=== PATIENT | female | born 1975 | race Caucasian/White ===

== ENCOUNTER → 2020-12-18 | Outpatient (CLI) | payer BC | END | disposition home or self-care (01) | LOC: LABWHC1 13:13 | PROVIDERS: ATTEND Nurse Practitioner Family | DX: R19.7 Diarrhea, unspecified (principal) | CPT/HCPCS: 83630; 87328; 87329 ==

== ENCOUNTER → 2021-06-21 | Outpatient (CLI) | payer BC ==
--- NOTE | 2021-06-21 11:17 | XR ---
EXAMINATION TYPE: XR foot limited RT DATE OF EXAM: 06/21/2021 CLINICAL HISTORY: pain TECHNIQUE: Frontal, lateral and oblique images of the right foot are obtained. COMPARISON: None. FINDINGS: There is no acute fracture/dislocation evident. The joint spaces appear within normal garza its. The overlying soft tissue appears unremarkable. IMPRESSION: There is no acute fracture or dislocation. ICD 10 NO FRACTURE, INITIAL EVALUATION
== END | disposition home or self-care (01) ==
LOC: RADXRMAIN 10:06
PROVIDERS: ATTEND Nurse Practitioner Family
DX: M79.671 Pain in right foot (principal)

== ENCOUNTER 2022-09-26 20:14 | Emergency (ER) | payer BC ==
[2022-09-26 20:19] VITALS: TEMP 98
[2022-09-26] MEDS ORDERED: ASPIRIN 81 MG PO STA (20:29)
[2022-09-26] MEDS ORDERED: SODIUM CHLORIDE 0.9% 1,000 ML IV STA (20:29)
[2022-09-26] MEDS ORDERED: MORPHINE SULFATE 4 MG/ML SYRINGE IVP STA (20:58)
[2022-09-26 21:12] LABS: Basophils # (A) 0.1 k/uL (0-0.2); Basophils % (A) 1 %; Eosinophils # (A) 0.1 k/uL (0-0.7); Eosinophils % (A) 1 %; HCT 43.1 % (34.0-46.0); HGB 14.4 gm/dL (11.4-16.0); Lymphocytes # (A) 2.6 k/uL (1.0-4.8); Lymphocytes % (A) 23 %; MCH 26.5 pg (25.0-35.0); MCHC 33.5 g/dL (31.0-37.0); MCV 78.9 fL (80.0-100.0); Mean Platelet Volume 8.4; Monocytes # (A) 0.7 k/uL (0-1.0); Monocytes % (A) 6 %; Neutrophils # (A) 7.5 k/uL (1.3-7.7); Neutrophils % (A) 67 %; Platelet Count 238 k/uL (150-450); RBC 5.46 m/uL (3.80-5.40); RDW 14.5 % (11.5-15.5); WBC 11.1 k/uL (3.8-10.6)
--- NOTE | 2022-09-26 21:17 | XR ---
EXAMINATION TYPE: XR chest 2V DATE OF EXAM: 09/26/2022 9:10 PM COMPARISON: None TECHNIQUE: XR chest 2V Frontal and lateral views of the chest. CLINICAL INDICATION:Female, 47 years old with history of Chest Pain; FINDINGS: Lungs/Pleura: There is no evidence of pleural effusion, focal consolidation, or pneumothorax. Pulmonary vascularity: Unremarkable. Heart/mediastinum: Cardiomediastinal silhouette is unremarkable. Musculoskeletal: No acute osseous pathology. IMPRESSION: No acute cardiopulmonary disease/process.
[2022-09-26 21:23] LABS: ALT 26 U/L (4-34); AST 22 U/L (14-36); African American GFR (CKD) >90 (>60 ml/min/1.73 sqM); Albumin 3.8 g/dL (3.5-5.0); Alkaline Phosphatase 85 U/L (38-126); Amylase 96 U/L (30-110); Anion Gap 9 mmol/L; Blood Urea Nitrogen 10 mg/dL (7-17); Calcium 8.5 mg/dL (8.4-10.2); Carbon Dioxide 21 mmol/L (22-30); Chloride 109 mmol/L (98-107); Glucose 115 mg/dL (74-99); Lipase 183 U/L (23-300); Non-African American GFR(CKD) >90 (>60 ml/min/1.73 sqM); Potassium 3.7 mmol/L (3.5-5.1); Sodium 139 mmol/L (137-145); Total Bilirubin 0.2 mg/dL (0.2-1.3); Total Protein 7.1 g/dL (6.3-8.2)
[2022-09-26 21:33] LABS: Partial Thromboplastin Time 21.2 sec (22.0-30.0); Prothrombin Time 10.3 sec (9.0-12.0)
[2022-09-26] MEDS ORDERED: LORazepam 2 MG/ML INJ IV STA (21:43)
[2022-09-26 21:53] LABS: Appearance,Urine Clear (Clear); Bacteria,Urine Rare /hpf; Bilirubin,Urine Negative (Negative); Blood,Urine Negative (Negative); Color,Urine Light Yellow; Glucose,Urine (UA) Negative (Negative); Ketones,Urine Negative (Negative); Leukocyte Esterase,Urine Small (Negative); Mucus,Urine Rare /hpf; Nitrite,Urine Negative (Negative); Protein,Urine Negative (Negative); RBC,Urine 2 /hpf (0-5); Specific Gravity,Urine 1.012 (1.001-1.035); Squamous Epithelial Cell,Urine 1 /hpf (0-4); Urobilinogen,Urine <2.0 mg/dL (<2.0); WBC,Urine 4 /hpf (0-5)
--- NOTE | 2022-09-26 22:07 | ED ---
Chest Pain HPI - General Chief Complaint: Chest Pain Stated Complaint: chest pain Time Seen by Provider: 09/26/22 20:23 Source: patient Mode of arrival: ambulatory Limitations: no limitations - History of Present Illness Initial Comments: Patient is a 47-year-old female with history of hypertension presenting with chief complaint of chest pain. Patient states that it is located in the center of her chest and feels like a pressure/tightness. It started about one hour prior to presentation. Patient admits to anxiety. No aggravating or allevia ting factors. Nonpleuritic. No nausea, vomiting, abdominal pain, fever, chills, cough, congestion, sore throat, palpitations, weakness, numbness, tingling. - Related Data Allergies Allergy/AdvReac Type Severity Reaction Status Date / Time No Known Allergies Allergy Verified 09/26/22 20:19 Review of Systems ROS Statement: Those systems with pertinent positive or pertinent negative responses have been documented in the HPI. ROS Other: All systems not noted in ROS Statement are negative. EKG Findings - EKG Comments: EKG Findings:: Sinus rhythm ventricular rate 94. W[place] interval 141. QRS 83. QT 341. QTC 393. No ST deviation or T wave inversion. Past Medical History Past Medical History: Hypertension History of Any Multi-Drug Resistant Organisms: None Reported Past Surgical History: No Surgical Hx Reported Smoking Status: Never smoker Past Alcohol Use History: None Reported Past Drug Use History: None Reported General Exam Limitations: no limitations General appearance: alert, in no apparent distress Head exam: Present: atraumatic, normocephalic, normal inspection Eye exam: Present: normal appearance ENT exam: Present: normal exam, mucous membranes moist Neck exam: Present: normal inspection, full ROM Respiratory exam: Present: normal lung sounds bilaterally. Absent: respiratory distress, wheezes, rales, rhonchi, stridor Cardiovascular Exam: Present: regular rate, normal rhythm, normal heart sounds. Absent: systolic murmur, diastolic murmur, rubs, gallop, clicks Neurological exam: Present: alert, oriented X3, CN II-XII intact Psychiatric exam: Present: anxious Skin exam: Present: warm, dry, intact, normal color. Absent: rash Course Vital Signs 09/26/22 09/26/22 09/26/22 20:15 20:47 21:20 Temperature 98 F Pulse Rate 100 97 87 Respiratory 20 23 Rate Blood Pressure 136/83 144/87 O2 Sat by Pulse 99 97 Oximetry Chest Pain MDM - MDM Was pt. sent in by a medical professional or institution (, SAVANNA, ROAD GANG SUPERVISOR, urgent care, hospital, or long-term...) When possible be specific @ -No Did you speak to anyone other than the patient for history (EMS, parent, family, police, friend...)? What history was obtained from this source @ -No Did you review nursing and triage notes (agree or disagree)? Why? @ -I reviewed and agree with nursing and triage notes Were old charts reviewed (outside hosp., previous admission, EMS record, old EKG, old radiological studies, urgent care reports/EKG's, long-term records)? Report findings @ -No old charts were reviewed Differential Diagnosis (chest pain, altered mental status, abdominal pain women, abdominal pain men, vaginal bleeding, weakness, fever, dyspnea, syncope, headache, dizziness, GI bleed, back pain, seizure, CVA, palpatations, mental health)? @ -MDM Differential Chest Pain: Stable Angina, Unstable Angina, STEMI, NSTEMI Aortic Dissection, Pneumothorax, Musculoskeletal, Esophageal Spasm GERD, Cholecystitis, Pancreatitis, Zoster This is not meant to be an all-inclusive list. EKG interpreted by me (3pts min.). @ -As above X-rays interpreted by me (1pt min.). @ -X-ray shows no acute process CT interpreted by me (1pt min.). @ -None done U/S interpreted by me (1pt. min.). @ -None done What testing was considered but not performed or refused? (CT, X-rays, U/S, labs)? Why? @ -None What meds were considered but not given or refused? Why? @ -Patient was offered morphine for pain and Ativan for anxiety, she declined stating that she had never had these medications and did not know how they would make her feel Did you discuss the management of the patient with other professionals (professionals i.e. SAVANNA Wynn, RO[employer] GANG SUPERVISOR, lab, RT, psych nurse, clinical social work aide, blankbook stitching machine operator, teacher, aerospace engineer officer armament, case specialist)? Give summary @ -No Was smoking cessation discussed for >3mins.? @ -No Was critical care preformed (if so, how long)? @ -No Were there social determinants of health that impacted care today? How? (Homelessness, low income, unemployed, alcoholism, drug addiction, transportation, low edu. Level, literacy, decrease access to med. care, correction, rehab)? @ -No Was there de-escalation of care discussed even if they declined (Discuss DNR or withdrawal of care, Hospice)? DNR status @ -No What co-morbidities impacted this encounter? (DM, HTN, Smoking, COPD, CAD, Cancer, CVA, ARF, Chemo, Hep., AIDS, mental health diagnosis, sleep apnea, morbid obesity)? @ -Hypertension Was patient admitted / discharged? Hospital course, mention meds given and route, prescriptions, significant lab abnormalities, going to OR and other pertinent info. @ -Patient is a 47-year-old female presenting with chief complaint of chest pain that started today. Physical examination is unremarkable. Lab work shows WBC 11.1. Troponin is less than 0.012. EKG shows no ischemic changes. I educated the patient on these results and stated that the recommendation would be to stay for observation and trending troponins. Patient states that she does not feel comfortable staying, as we are currently on lockdown and that makes her very anxious, she is also anxious that her is not here with her. I offered the patient morphine for her pain as well as Ativan to help her anxiety. She declined morphine. I explained to the patient that when having chest pain there is a likelihood within 24 hours that she may have a cardiac event and this is why we recommend observation. Patient conveyed verbal understanding, she states that while she understands she wishes to be discharged home at this time. When asked if she understands that this may result in permanent injury or she responds with verbal understanding. She is of sound mind and body and able to make her decisions. She is instructed to follow-up with her PCP. Follow-up with PCP. Report back to ER with any new or worsening symptoms. Discussed return parameters and answered all questions. Patient conveyed verbal understanding. I discussed this case in detail with my attending Dr. Gamino Undiagnosed new problem with uncertain prognosis? @ -No Drug Therapy requiring intensive monitoring for toxicity (Heparin, Nitro, Insuli n, Cardizem)? @ -No Were any procedures done? @ -No Diagnosis/symptom? @ -Chest Pain Acute, or Chronic, or Acute on Chronic? @ -acute Uncomplicated (without systemic symptoms) or Complicated (systemic symptoms)? @ -Complicated Side effects of treatment? @ -No Exacerbation, Progression, or Severe Exacerbation? @ -No Poses a threat to life or bodily function? How? (Chest pain, [place], [place], pneumonia, PE, COPD, DKA, ARF, appy, cholecystitis, CVA, Diverticulitis, Homicidal, Suicidal, threat to staff... and all critical care pts) @ -Yes Disposition Clinical Impression: Chest pain Disposition: HOME SELF-CARE Condition: Fair Instructions (If sedation given, give patient instructions): Chest Pain (ED) Additional Instructions: Follow-up with PCP. Report back to ER with any new or worsening symptoms. You understand that you are leaving against medical advice and we recommend you stay in the hospital for observation and evaluation by cardiology. Is patient prescribed a controlled substance at d/c from ED?: No Referrals: [facility],Clinic [Primary Care Provider] - 1-2 days Time of Disposition: 22:06
[2022-09-26 22:20] VITALS: BP 148/89; PULSE 66; RESP 16
== END 2022-09-26 22:20 | disposition home or self-care (01) ==
LOC: EC 20:14
DX: R07.9 Chest pain, unspecified (principal); I10 Essential (primary) hypertension
CPT/HCPCS: 36415; 93005; 80053; 82150; 83690; 83735; 84484; 85025; 85610; 85730; 81001; 71046; 99285; 96374; 96361; J2060

== ENCOUNTER → 2023-06-29 | Outpatient (CLI) | payer BC ==
--- NOTE | 2023-06-29 12:39 | XR ---
EXAMINATION TYPE: XR ribs RT w pa chest xray DATE OF EXAM: 06/29/2023 11:56 AM CLINICAL INDICATION:Female, 48 years old with history of R079 CHEST PAIN; [facility] COMPARISON: 09/26/2022. TECHNIQUE: XR ribs RT w pa chest xray; Frontal and oblique views of the ribs with frontal chest radio graph. FINDINGS: The ribs have a normal appearance. No evidence of fracture. Overall, the lungs are clear. The cardiac silhouette is normal in size. The remaining osseous structures are intact. Calcification density projecting over the expected location of the gallbladder. IMPRESSION: 1. No acute osseous pathology. 2. Suspected cholelithiasis.
== END | disposition home or self-care (01) ==
LOC: RADXRYALE 11:41
PROVIDERS: ATTEND Physician Assistant
DX: R07.9 Chest pain, unspecified (principal)

== ENCOUNTER → 2025-03-15 | Outpatient (CLI) | payer BC ==
--- NOTE | 2025-03-15 11:30 | US ---
EXAMINATION TYPE: US mass soft tissue chest/back DATE OF EXAM: 03/15/2025 COMPARISON: NONE CLINICAL INDICATION: Female, 50 years old with history of R22.1 LOCALIZED SWELLING MASS LUMP; Upper b ack lump/hump just below neck. 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 TECHNIQUE: Sonographic images taken at area of concern. FINDINGS: Area of concern scanned. Thickening visualized at area of concern. Provided images show focal ovoid increase in the subcutaneous fat at the patient's area of concern me asuring approximately 11.4 cm wide by 10.2 cm craniocaudal by 2.8 cm thick. IMPRESSION: 11.4 x 10.2 x 2.8 cm focal ovoid collection of fat, either fatty subcutaneous accumulation or poorly defined lipoma/lipomatous tumor at the patient's area of concern. Clinically correlate. If any enlarg ing abnormality is detected, surgical evaluation could be considered. [facility], , 03/15/2025 11:28 AM
== END | disposition home or self-care (01) ==
LOC: RADUSWWP 10:51
PROVIDERS: ATTEND Family Medicine
DX: D17.1 Benign lipomatous neoplasm of skin and subcutaneous tissue of trunk (principal); R22.1 Localized swelling, mass and lump, neck